=== PATIENT | female | born 1970 | race Caucasian/White ===

== ENCOUNTER 2016-05-09 09:25 | Day surgery (SDC) | payer MEDICAID ==
[~2016-05-09 09:25] MED LIST: RINGERS SOLUTION,LACTATED 1,000 ML IV PRN; ceFAZolin SODIUM 2 GM in DEXTROSE 5 % IN WATER 50 ML IV PRN
[2016-05-09 09:44] LABS: Hematocrit 39.9 % (37.0-47.0); Hemoglobin 13.3 gm/dL (12.5-16.0); Mean Cell Volume 87.5 fl (78-100); Mean Corpuscular Hemoglobin 29.2 pg (27-31); Mean Corpuscular Hgb Conc 33.3 g/dl (32-36); Mean Platelet Volume 11.1 fl (6.0-9.5); Neutrophil # 3.1 K/mm3 (1.3-6.0); Neutrophil % 57.4 % (42-75.0); Platelet Count 286 K/mm3 (150-450); Red Blood Count 4.56 M/mm3 (4.2-5.4); Red Cell Distribution Width 11.9 % (11.5-14.0); White Blood Count 5.3 K/mm3 (4.0-10.5)
[2016-05-09] MEDS ORDERED: RINGERS SOLUTION,LACTATED 1,000 ML IV ONE ×2 (10:00→11:35)
[2016-05-09] MEDS ORDERED: BUPIVACAINE HCL/EPINEPHRINE 50 ML VIAL IJ ONE (10:48)
[2016-05-09] MEDS ORDERED: HYDROmorphone HCL 4 MG/ML DISP.SYRIN IV ONE (12:17)
--- NOTE | 2016-05-09 12:23 | OR ---
Operative Report - Dictated Report Narrative: Operative Report - 05/09/16 Total Vaginal Hysterectomy Preoperative Diagnosis: Menorrhagia, Fibroid Uterus Postoperative Diagnosis: Menorrhagia, Fibroid Uterus Procedure: Total Vaginal Hysterectomy, Modified Hicks's Culdoplasty Surgeon: Sagar Anderson Anesthesia: Anabela Jacob CRNA, general Findings: Normal appearing tubes and ovaries. Small uterus with fibroids Fluids: 950 ml EBL: 50 ml Drains: Straight cath after procedure, 200 mL of clear yellow urine Pathology: Uterus Complications: None Condition: Stable Procedure: The patient was taken to the operating room with IV fluids running. She was placed in the dorsal lithotomy position after anesthesia was induced. She was prepped and draped in the normal sterile fashion. A weighted speculum was placed in the posterior aspect of the vagina and a [place] retractor was placed in the anterior aspect of the vagina. Breisky retractors were placed laterally. The cervix was grasped with 2 single-tooth tenaculums. The cervix was injected circumferentially with 0.5% Marcaine with epinephrine. A circumferential incision was made around the cervix using a Mandujano Meredith scissors. Attention was then turned posteriorly. Sharp dissection was performed until the posterior peritoneal reflection was clearly visualized. The peritoneum was then entered sharply. Location was confirmed by visualization of the bowel. [place] retractor was then placed into the abdominal cavity. Attention was then turned anteriorly. Sharp dissection was performed until the anterior peritoneal reflection was visualized. It was entered sharply using the Mandujano Meredith scissors. Location was confirmed by visualization of bowel. The Geovanny retractor was then placed into the abdominal cavity. Attention was then turned posteriorly. The uterosacral ligaments were clamped with a curved Fabian, transected and suture ligated using 0 Vicryl. These ligatures were tagged for later modified Hicks's culdoplasty. Attention was then turned to the cardinal ligaments. They were clamped with the gyrus Fabian clamp, cauterized with the gyrus and transected. The uterine arteries were clamped with the gyrus Fabian, cauterized and transected for excellent hemostasis. The cornual angles were clamped with Fabian clamps bilaterally and the uterus was amputated. The cornual angles were suture ligated with 0 Vicryl for excellent hemostasis. The tubes and ovaries were clearly visualized and were grossly normal in appearance. The tubes were too high to remove vaginally. The posterior vaginal cuff was reapproximated using 2-0 Vicryl in a running locked fashion for excellent hemostasis. The uterosacral tags were then utilized for culdoplasty. The suture was driven through the uterosacral ligament, reefed across the peritoneum posteriorly and brought out the midline of the posterior vaginal cuff. The vaginal cuff was closed in a vertical fashion with 2-0 Vicryl in a running lock stitch for excellent hemostasis. The culdoplasty stitch was tied down to elevate the vaginal cuff. The bladder was catheterized with a catheter and clear yellow urine was drained. The patient tolerated the procedure well. Sponge lap needle and instrument counts are correct x 2. The patient was taken to the recovery room in stable condition.
[2016-05-09] MEDS ORDERED: IBUPROFEN 600 MG TABLET PO PRN (12:39)
[2016-05-09] MEDS ORDERED: oxyCODONE HCL/ACETAMINOPHEN 1 TAB TABLET PO PRN (12:39)
[2016-05-09] MEDS ORDERED: HYDROmorphone HCL 1 MG/ML DISP.SYRIN IV ONE (12:45)
[2016-05-09] MEDS ORDERED: oxyCODONE HCL/ACETAMINOPHEN 1 TAB TABLET PO ONE (15:30)
[2016-05-09 15:37] VITALS: BP 132/85
== END 2016-05-09 09:26 | disposition home or self-care (01) ==
LOC: AMB 09:25
PROVIDERS: ATTEND Obstetrics & Gynecology
PROC: 0UTC7ZZ Resection of Cervix, Via Natural or Artificial Opening (ICD-10-PCS; 2016-05-09)
PROC: 0UT97ZZ Resection of Uterus, Via Natural or Artificial Opening (ICD-10-PCS; principal; 2016-05-09 13:00)
DX: D25.0 Submucous leiomyoma of uterus (principal); D25.2 Subserosal leiomyoma of uterus; D25.1 Intramural leiomyoma of uterus; N72 Inflammatory disease of cervix uteri; N92.0 Excessive and frequent menstruation with regular cycle; I10 Essential (primary) hypertension; Z68.33 Body mass index [BMI] 33.0-33.9, adult

== ENCOUNTER 2016-07-07 15:53 | Emergency (ER) | payer MEDICAID ==
--- OUTSIDE RECORDS SUMMARY | 2016-07-07 16:31 | XMS REPORT | Continuity of Care Document ---
:1970 Author Organization [facility] ([facility]) Address [place] [address] Phone [phone] Care Team Providers Name Role Phone Unavailable Primary Care Provider Unavailable Source Comments This disclosure is being made pursuant to the Care Everywhere program, applicable federal and state laws, and may not contain all informaitonavailable regarding this patient.[facility] ([facility]) Active Allergies and Adverse Reactions Not on File Current Medications Not on file Active Problems Not on file Social History Tobacco Use Types Packs/Day Years Used Date Never Assessed Plan of Care Health Maintenance Due Date Last Done Comments Hepatitis B Vaccine (1 of 3 - Primary Series) 1970 Tdap Vaccine 12/31/1978 Lipid Disorder Screening 12/31/1985 MMR Vaccine 12/31/1985 Td Vaccine 12/31/1985 Cervical Cancer Screening 12/31/1997 Mammogram 2008 Influenza Vaccine: Seasonal (#1) 11/08/2015 Results from Last 3 Months Not on file
--- NOTE | 2016-07-07 17:06 | ERNOTE ---
Date of Service: 07/07/16 Time Seen by Provider: 07/07/16 16:12 Stated Complaint: COUGH.BODY ACHES.DIARRHEA.CONFUSED Presenting Symptoms:: cough, runny nose, other - body aches Source: patient Exam Limitations: no limitations Immunizations: IMMUNIZATION HX Immunizations Up to Date Yes History of Influenza Vaccine Yes Hx Pneumococcal Vaccination No Allergies/Adverse Reactions: Allergies No Known Allergies Allergy (Verified 07/07/16 16:00) Home Medications: HOME MEDICATIONS ALPRAZolam [Xanax] 0.5 mg PO TID PRN 03/15/15 [Last Taken Unknown] Venlafaxine HCl [Effexor Xr] 150 mg PO DAILY 03/15/15 [Last Taken Unknown] Multivitamins [Multivitamin Ten] 1 cap PO DAILY 01/27/16 [Last Taken Unknown] Ibuprofen [Motrin] 600 mg PO Q6H PRN #60 tab 05/09/16 [Last Taken Unknown] Doxycycline Monohydrate 100 mg PO BID #20 tablet 07/07/16 [Last Taken Unknown] predniSONE [Prednisone] 3 tab PO DAILY #9 tab 07/07/16 [Last Taken Unknown] - History of Present Ilness Narrative: Pt. comes in with ten day c/o cough, chest congestion, rhinorrhea, and malaise. Pt. denies any chest pain except with cough, SOB, fever, nausea and vomiting. Pt. does state that she has had one episode of diarrhea last night. Pt. denies any prehospital treatment or alleviating factors but states that night and lying down exacerbates the symptoms. Review of Systems - Review of Systems Constitutional: Present: fatigue, malaise. Absent: recent illness, fever, chills EYE: Present: no symptoms reported ENT: Present: nose congestion, nasal drainage, sore throat Respiratory: Present: cough. Absent: shortness of breath, wheezing Cardiology: Present: no symptoms reported. Absent: chest pain, palpitations, edema Gastrointestinal/Abdominal: Present: diarrhea. Absent: nausea, vomiting Genitourinary: Present: no symptoms reported Musculoskeletal: Present: no symptoms reported. Absent: back pain, joint pain Skin: Present: no symptoms reported. Absent: rash, change in color, change in hair/nails Neurological: Present: no symptoms reported. Absent: headache, dizziness/light- headedness, numbness, tingling All Other Systems: All systems neg except as marked - Patient's Past Medical History Patient History - Medical: Anxiety Patient History - Cardiac/Respiratory: Hypertension, Hyperlipidemia Patient History - Cancer: No Hx of Cancer Patient History - Surgical Procedures: , D & C Patient History - Other: None LMP (Calendar): 04/25/16 - Family History Mother Family History - Medical: No pertinent hx Family History - Cardiac/Respiratory: Coronary Heart Disease Family History - Cancer: No pertinent family hx Father Family History - Medical: No pertinent hx Family History - Cardiac/Respiratory: Hypertension Family History - Cancer: No pertinent family hx - Social History Living Situations: alone Abuse History: No History of abuse Psych History: Hx of Anxiety, Hx of Depression, Current tx/ever been on anti- depressants or anti-anxiety meds Smoking Status: Never smoker Alcohol Use: none Drug Use: none - Immunizations Immunizations Up to Date: Yes Hx Pneumococcal Vaccination: No History of Influenza Vaccine: Yes Physical Exam - Physical Exam General Appearance: Present: wd/wn, alert, no apparent distress Eye Exam: Normal inspection: bilateral, PERRL: bilateral, EOMI: bilateral Ears, Nose, Throat: Present: nasal congestion, sinus pain/drainage, normal pharynx, tonsillar exudate - clear Neck: Present: normal inspection, nontender. Absent: lymphadenopathy (R), lymphadenopathy (L) Respiratory: Present: no respiratory distress, normal breath sounds, no accessory muscle use, lungs clear, chest tenderness - mid chst and intercostal Cardiovascular/Chest: Present: regular rate, rhythm, no murmur, normal peripheral pulses Gastrointestinal/Abdominal: Present: normal bowel sounds, nontender, nondistended, soft, no organomegaly Back Exam: Present: normal inspection, normal range of motion, no CVA tenderness , no vertebral tenderness Extremity Exam: Present: normal inspection Neurological Exam: Present: alert, oriented, normal mood/affect, no motor/ sensory deficits Skin Exam: Present: normal color, warm/dry. Absent: pallor, skin rash ED Progress - Results and Orders Patient's Lab Results:: I have reviewed the patient's lab results. - Vital Signs Patient's Vital Signs:: I have reviewed the patient's vital signs. Vital Signs: Vital Signs 07/07/16 15:56 Temperature 37.6 C H Pulse Rate 104 H Respiratory 18 Rate Blood Pressure 155/96 O2 Sat by Pulse 100 Oximetry - X-Ray X-Ray #1 X-Ray: chest Interpretation: Reviewed by me X-ray Comments: bronchial cuffing - Progress/Reassessment Chief Complaint: Cough Progress:: Unchanged Departure - Departure Clinical Impression: Bronchitis Disposition: Home self-care Condition: Good Instructions: Acute Bronchitis Additional Instructions: Please follow up with primary provider in 2-3 days. Referrals: Filomena Lombardi MD [Primary Care Provider] - Prescriptions: Doxycycline Monohydrate 100 mg PO BID #20 tablet predniSONE [Prednisone] 3 tab PO DAILY #9 tab
[2016-07-07 17:58] VITALS: BP 144/88
== END 2016-07-07 17:30 | disposition home or self-care (01) ==
LOC: ER 15:53
DX: J40 Bronchitis, not specified as acute or chronic (principal); F41.9 Anxiety disorder, unspecified; F32.9 Major depressive disorder, single episode, unspecified